=== PATIENT | female | born 1990 | race African-American/Black ===

== ENCOUNTER 2019-02-25 10:07 | Emergency (ER) | payer OTHER ==
[~2019-02-25] VITALS: Ht 160 cm; Wt 65.8 kg
[~2019-02-25 10:07] MED LIST: APAP500; DERMOPLAST SPRA56 ML; HYDROCORTISONE 01 OZ; IBUPROFEN 800800 M1
[2019-02-25 10:40] LABS: BE(vivo) -3.6 mmol/L (-2 to +3); HCO3 21.2 mmol/L (22.0-26.0); PCO2 VENOUS 37.7 mmHg (41.0-51.0)
[2019-02-25 10:53] LABS: ANION GAP 11 mmol/L (7-16); BUN 17 mg/dL (7-18); CALCIUM 9.3 mg/dL (8.5-10.1); CHLORIDE 106 mmol/L (98-107); CO2 24 mmol/L (21-32); GLUCOSE 85 mg/dL (74-106); POTASSIUM 3.7 mmol/L (3.5-5.1); SODIUM 141 mmol/L (136-145)
[2019-02-25 11:02] LABS: TROPONIN-I <0.06 ng/mL (<0.06)
[2019-02-25] MEDS ORDERED: NEURONTIN 300300 M1 PO (11:12)
[2019-02-25 14:23] LABS: HCO3 20.9 mmol/L (22.0-26.0); PCO2 VENOUS 37.6 mmHg (41.0-51.0); PO2 VENOUS 70.3 mmHg (35.0-45.0)
[2019-02-25 14:34] VITALS: BP 110/64
--- NOTE | 2019-02-26 09:29 | EKG ---
[address] [address] ELECTROCARDIOGRAM REPORT Name: MIKE PRADO [id number] ������������������ Admission: 02/25/19 ������������������ Attend Phys: Discharge: 02/25/19 ������������������ Date of : 86 Report #: [id number] ����������������������������������������������������������������� [id number] THIS REPORT FOR: //name// [facility] ED Test Date: 2019-02-25 Test Time: 10:39:40 Pat Name: MIKE PRADO Department: Room: Gender: F Superintendent General: . : 1990 Requested By: Miguel Vargas Order Number: [id number] MD: Jason Murcia Measurements Intervals [place] Rate: 91 P: 59 [place]: 157 QRS: 27 QRSD: 84 T: 29 QT: 370 QTc: 456 Interpretive Statements Sinus rhythm No previous ECG available for comparison Electronically Signed On 02-26-2019 9:29:01 CDT by Jason Murcia [email or web address] ��������������������������������������������� <ELECTRONICALLY SIGNED> ���������������������������������������� By: Jason Murcia MD ��������������������������������������������� 02/26/19 0929 1039 1039 Jason Murcia MD /EPI
== END 2019-02-25 14:34 | disposition home or self-care (01) ==
LOC: ER 10:07
PROVIDERS: Emergency Medicine
DX: T58.91XA Toxic effect of carbon monoxide from unspecified source, accidental (unintentional), initial encounter (principal); Z88.0 Allergy status to penicillin

== ENCOUNTER 2019-03-01 16:02 | Emergency (ER) | payer OTHER ==
[~2019-03-01] VITALS: Ht 157.5 cm; Wt 65.8 kg
[~2019-03-01 16:02] MED LIST changes: +NEURONTIN 300300 M1 PO
[2019-03-01 18:23] LABS: BE(vivo) 0.8 mmol/L (-2 to +3); HCO3 24.9 mmol/L (22.0-26.0); PCO2 38.3 mmHg (35.0-45.0); PO2 101.2 mmHg (80.0-100.0); pH 7.431 (7.360-7.450); sO2 97.8 % (92.0-98.0)
[2019-03-01 18:56] LABS: ABSOLUTE NEUTROPHILS 2.6 thou/uL (1.4-8.2); EOSINOPHILS 2.8 % (0.0-3.0); HEMATOCRIT 40.4 % (37.0-47.0); HEMOGLOBIN 13.2 gm/dL (12.0-15.0); LYMPHOCYTES 35.6 % (24.0-44.0); MCH 30.1 pg (26.0-34.0); MCHC 32.6 g/dL (28.0-37.0); MCV 92.6 fL (80.0-100.0); MONOCYTES 11.8 % (1.0-8.0); PLATELET COUNT 349 thou/uL (150-400); POLYS 48.8 % (36.0-66.0); RBC 4.37 mil/uL (4.20-5.00); RDW 12.3 % (10.5-14.5); WBC 5.3 thou/uL (4.0-11.0)
[2019-03-01 19:01] LABS: ANION GAP 2 mmol/L (7-16); BUN 10 mg/dL (7-18); CALCIUM 8.8 mg/dL (8.5-10.1); CHLORIDE 103 mmol/L (98-107); CO2 32 mmol/L (21-32); CREATININE 0.8 mg/dL (0.6-1.0); GLUCOSE 115 mg/dL (74-106); POTASSIUM 4.1 mmol/L (3.5-5.1); SODIUM 137 mmol/L (136-145)
[2019-03-01 19:10] LABS: APTT 33.8 Seconds (24.5-32.8); D-DIMER 0.19 ug/mLFEU (0.19-0.50); INR 1.1
[2019-03-01 19:11] LABS: ALBUMIN 3.7 g/dL (3.4-5.0); SGOT 15 U/L (15-37); SGPT 14 U/L (30-65); TOTAL BILIRUBIN 0.6 mg/dL (<0.1-1.0); TOTAL PROTEIN 7.2 g/dL (6.4-8.2); TROPONIN-I <0.06 ng/mL (<0.06)
[2019-03-01 20:51] VITALS: BP 123/64
--- NOTE | 2019-03-02 09:30 | EKG ---
[address] [address] ELECTROCARDIOGRAM REPORT Name: MIKE PRADO Room #: [facility]#: [id number] ������������������ Admission: 03/01/19 ������������������ Attend Phys: Discharge: 03/01/19 ������������������ Date of : 86 Report #: [id number] ����������������������������������������������������������������� [id number] THIS REPORT FOR: //name// [facility] ED Test Date: 2019-03-01 Test Time: 16:47:47 Pat Name: MIKE PRADO Department: Room: Gender: F Technical Research Scientist: : 1990 Requested By: Mirna Willett Order Number: [id number] MD: Dean Xie Measurements Intervals [place] Rate: 79 P: 6 [place]: 143 QRS: 25 QRSD: 97 T: 12 QT: 376 QTc: 432 Interpretive Statements Sinus rhythm Normal tracing Compared to ECG 02/25/2019 10:39:40 No significant changes Electronically Signed On 03-02-2019 9:30:12 CDT by Dean Xie [email or web address] ��������������������������������������������� <ELECTRONICALLY SIGNED> ���������������������������������������� By: Dean Xie MD, [facility] ��������������������������������������������� 03/02/19 0930 1647 1647 Dean Xie MD, [facility]ACC /EPI
== END 2019-03-01 20:51 | disposition home or self-care (01) ==
LOC: ER 16:02
PROVIDERS: Physician Assistant
DX: R07.89 Other chest pain (principal); Z88.0 Allergy status to penicillin; Z90.49 Acquired absence of other specified parts of digestive tract

== ENCOUNTER 2021-03-30 10:55 | Emergency (ER) | payer OTHER ==
[~2021-03-30] VITALS: Ht 157.5 cm; Wt 70.3 kg
[2021-03-30] MEDS ORDERED: IBUPROFEN200 M1 PO (11:04)
[2021-03-30 11:25] LABS: ABSOLUTE NEUTROPHILS 2.4 thou/uL (1.4-8.2); BASOPHILS 0.6 % (0.0-2.0); EOSINOPHILS 5.6 % (0.0-3.0); HEMATOCRIT 42.2 % (37.0-47.0); HEMOGLOBIN 13.7 gm/dL (12.0-15.0); MCH 30.3 pg (26.0-34.0); MCHC 32.6 g/dL (28.0-37.0); MCV 93.1 fL (80.0-100.0); MONOCYTES 9.1 % (1.0-8.0); PLATELET COUNT 402 thou/uL (150-400); POLYS 47.7 % (36.0-66.0); RBC 4.53 mil/uL (4.20-5.00); RDW 12.3 % (10.5-14.5)
[2021-03-30 11:38] LABS: CALCIUM 8.8 mg/dL (8.5-10.1); CREATININE 0.9 mg/dL (0.6-1.0); POTASSIUM 3.9 mmol/L (3.5-5.1)
[2021-03-30 11:44] LABS: ALBUMIN 3.7 g/dL (3.4-5.0); TOTAL BILIRUBIN 0.8 mg/dL (0.2-1.0); TOTAL PROTEIN 7.6 g/dL (6.4-8.2)
[2021-03-30 13:43] VITALS: BP 124/78
== END 2021-03-30 14:35 | disposition home or self-care (01) ==
LOC: ER 10:55
PROVIDERS: Emergency Medicine Emergency Medical Services
DX: R51.9 Headache, unspecified (principal); Z98.890 Other specified postprocedural states; Z90.89 Acquired absence of other organs; Z88.0 Allergy status to penicillin